=== PATIENT | female | born 1940 | race Caucasian/White ===

== ENCOUNTER 2022-01-20 11:07 | Day surgery (SDC) | payer MEDICARE, OTHER ==
[~2022-01-20] VITALS: Ht 165.1 cm; Wt 71.4 kg
[2022-01-20] MEDS ORDERED: BETAPACE AF80 MG/TA1 PO (11:51)
[2022-01-20] MEDS ORDERED: CRESTOR5 MG PO (11:51)
[2022-01-20] MEDS ORDERED: CARAFATE 1GM1 G PO (11:52)
[2022-01-20] MEDS ORDERED: ZESTRIL40 MG PO (11:52)
[2022-01-20 12:11] VITALS: BP 165/82; PULSE 54; TEMP 97.3
[2022-01-20 14:35] VITALS: BP 153/63; PULSE 60
--- NOTE | 2022-01-20 14:41 | NUR ---
REPORT RECEIVED FROM DERICK RN. PT A&OX3, VSS. PT TOLERATIN GPO LIQUIDS WELL. DAUGHTER, POLI AT BEDSIDE. CALL LOW WITHIN REACH; SAFETY MAINTAINED.
[2022-01-20 14:42] VITALS: TEMP 97.2
--- NOTE | 2022-01-20 14:43 | NUR ---
PT USING BEDSIDE COMMODE WITH ASSISTANCE; NO DIFFICULTIES.
[2022-01-20 14:45] VITALS: BP 134/60; PULSE 55
[2022-01-20 15:00] VITALS: BP 150/64; PULSE 56
--- NOTE | 2022-01-20 15:00 | NUR ---
PT TOLERATING CRACKERS WELL.
--- NOTE | 2022-01-20 15:04 | NUR ---
PT AMBULATED TO BR WITH ASSISTANCE WELL. DISCHARGE INSTRUCTIONS GIVEN TO PT AND DAUGHTER; QUESTIONS ANSWERED; UNDERSTANDING VERBALIZED.
--- NOTE | 2022-01-20 15:30 | NUR ---
PT OFF UNIT PER WHEELCHAIR. PT DISCHARGED TO HOME WITH DAUGHTER PER PERSONAL VEHICLE.
== END 2022-01-20 15:30 | disposition home or self-care (01) ==
LOC: SDCO 11:07
DX: N30.81 Other cystitis with hematuria (principal); I10 Essential (primary) hypertension; Z79.899 Other long term (current) drug therapy
CPT/HCPCS: C1769; C2617; J0690; J2405; J2704; J3010; J7120